=== PATIENT | female | born 1970 | race Caucasian/White ===

== ENCOUNTER → 2018-11-16 | Outpatient (CLI) | payer OTHER ==
[~2018-11-16] MED LIST: ALPR-475 PO; ALPR0.5T6 PO; CROM10DR2 EACHEYE; DIAZ5TAB PO; HYDR2TAB29 PO; KETO5DRO70 OP; METO25TA35 PO; MONT10TA9 PO; OMEP-110 PO; ONDA4TAB10 PO; OXYC-302 PO; PARO7.5C PO; PHEN10CA2 PO; ZOLP10TA5 PO; ZOLP12.54 PO; imitrex PO
== END | disposition home or self-care (01) ==
LOC: CFH 14:11
PROVIDERS: ATTEND Family Medicine
DX: Z12.31 Encounter for screening mammogram for malignant neoplasm of breast (principal)
CPT/HCPCS: 77067